=== PATIENT | female | born 1980 | race Caucasian/White ===

== ENCOUNTER 2017-04-05 09:07 | Emergency (ER) | payer MEDICAID ==
[~2017-04-05] VITALS: Ht 144.8 cm; Wt 79.8 kg
[2017-04-05 10:47] VITALS: BP 120/64
== END 2017-04-05 10:47 | disposition home or self-care (01) ==
LOC: ED 09:07
DX: J06.9 Acute upper respiratory infection, unspecified (principal)
CPT/HCPCS: J3490